=== PATIENT | male | born 1985 | race Caucasian/White ===

== ENCOUNTER 2020-07-21 17:18 | Emergency (ER) | payer BC, SELFPAY ==
--- NOTE | ~2020-07-21 | XR_ITS ---
EXAMINATION: XR hand RT min 3V DATE: 07/21/2020 18:43 INDICATION: Hand injury with bruising at the third-fifth metacarpals TECHNIQUE: Posteroanterior, oblique and lateral views of the right hand were obtained. COMPARISON: None. FINDINGS: Alignment is normal. No fracture. Joint spaces are normal. Prominent soft tissue swelling over the do rsum of the hand at the level of the heads of the metacarpals. IMPRESSION: 1. No osseous abnormality. Reviewed, dictated and finalized at location A. CAL DOSIMETRIST IMPRESSION: 1. No osseous abnormality.
[2020-07-21 17:26] VITALS: BP 157/90; PULSE 99; RESP 14; TEMP 36.5; O2SAT 99
--- NOTE | 2020-07-21 19:27 | ED.FALL ---
HPI - Fall General Chief Complaint: Fall Stated Complaint: right hand injury Time Seen by Provider: 07/21/20 18:44 Source: patient Mode of arrival: ambulatory Limitations: no limitations History of Present Illness HPI Narrative: Patient is a 35-year-old male who presents with right hand injury patient was walking when he tripped and fell striking the hand on a refrigerator on the way down has bruising over the second and fourth MCP joints with moderate aching pain able to perform range of motion without difficulty Related Data Allergies Allergy/AdvReac Type Severity Reaction Status Date / Time No Known Allergies Allergy Unverified 08/29/18 10:13 Review of Systems Review of Systems: All systems reviewed & are unremarkable except as noted in HPI and below PMFSH Past Medical History Medical History (Updated 07/21/20 @ 19:31 by Francisco Meraz PA-C) CVA (cerebral vascular accident) Hypertension Social History Social History (Updated 07/21/20 @ 19:29 by Francisco Meraz PA-C) Smoking status: Never smoker Exam Narrative: Exam Narrative: GENERAL: Well-appearing, well-nourished, and in no acute distress. HEAD: Normocephalic, atraumatic. EYES: PERRLA and EOMI. ENT: Nares clear, no rhinorrhea or epistaxis. Mucous membranes moist. CHEST: Clear to auscultation. No respiratory distress. No wheezes rales or rhonchi HEART: Regular rate and rhythm. No murmur heard. EXTREMITIES: Normal range of motion. No edema. Bruising over the second through fourth MCP joints remainder of hand nontender no deformities SKIN: Warm, dry, no rash. NEURO: No focal deficits. Alert and oriented x3. Neurovascularly intact. Capillary refill less than 2-second PSYCH: Normal mood and affect. Course Course Emergency Course: Patient in the room in no distress aware of case findings treatment plan diagnosis to the Vital Signs Vital signs: Vital Signs Temperature 97.7 F 07/21/20 17:26 Pulse Rate 99 07/21/20 17:26 Respiratory Rate 14 07/21/20 17:26 Blood Pressure 157/90 H 07/21/20 17:26 Pulse Oximetry 99 07/21/20 17:26 Temperature 97.7 F 07/21/20 17:26 Pulse Rate 99 07/21/20 17:26 Respiratory Rate 14 07/21/20 17:26 Blood Pressure 157/90 H 07/21/20 17:26 Pulse Oximetry 99 07/21/20 17:26 MDM - Fall MDM Narrative Medical decision making narrative: Patients injury or pain is consistent with musculoskeletal etiology. No signs of neurological or vascular compromise on exam. Compartments and tisues are soft without signs of compartment syndrome. Pain is felt appropriate for further evaluation on an outpatient basis. Imaging Data Radiologist's impression: ITS Impressions Hand X-Ray 07/21/20 18:49 IMPRESSION: 1. No osseous abnormality. Discharge Plan Discharge Clinical Impression: Contusion of hand, right Patient Disposition: Home, Self-Care Condition: Stable Instructions: Antibiotic Form, Contusion in Adults (ED) Additional Instructions: Follow-up with primary care in the next 7 days for reevaluation Wear Carlos wrap with rest ice and elevation Return if symptoms worsen or concerns or any increase in redness swelling pain or fever 100.5 Follow-up/Referrals: Mendez Cardona MD [Primary Care Provider] -
== END 2020-07-21 19:36 | disposition home or self-care (01) ==
PROVIDERS: Emergency Provider Emergency Medicine; PCP Family Medicine Adolescent Medicine
DX: S60.221A Contusion of right hand, initial encounter (principal); W01.198A Fall on same level from slipping, tripping and stumbling with subsequent striking against other object, initial encounter; Z86.73 Personal history of transient ischemic attack (TIA), and cerebral infarction without residual deficits; I10 Essential (primary) hypertension
CPT/HCPCS: 73130; 99283

== ENCOUNTER 2021-01-13 15:11 | Outpatient (CLI) | payer BC, MEDICARE, SELFPAY ==
--- NOTE | ~2021-01-13 | XR_ITS ---
XR shoulder RT min 2V 01/13/2021 15:30 INDICATION: Chronic right shoulder pain PROCEDURE: 4 views right shoulder COMPARISON: No prior studies for comparison. FINDINGS: Fracture, dislocation or subluxation is not identified. The soft tissues appear within norm al limits. No foreign bodies are identified. IMPRESSION: 1: NO ACUTE BONE OR JOINT ABNORMALITY IDENTIFIED. Reviewed, dictated and finalized at location A.
== END 2021-01-13 15:12 | disposition home or self-care (01) ==
LOC: ANHIMG 15:18
PROVIDERS: PCP Family Medicine Adolescent Medicine; Visit Provider Family Medicine Adolescent Medicine
DX: M25.511 Pain in right shoulder (principal)
CPT/HCPCS: 73030